=== PATIENT | male | born 1980 ===

== ENCOUNTER 2022-02-27 01:36 | Observation (INO) ==
[2022-02-27] MEDS ORDERED: GLUCAGON 1 MG VIAL IM PRN (02:15)
[2022-02-27] MEDS ORDERED: ONDANSETRON 4 MG/2 ML VIAL IV PRN (02:15)
[2022-02-27] MEDS ORDERED: ACETAMINOPHEN 325 MG TABLET PO PRN (02:15)
[2022-02-27] MEDS ORDERED: INFLUENZA VIRUS VACCINE 0.5 ML SYRINGE IM ONE (02:20)
[2022-02-27] MEDS ORDERED: hydrALAZINE 20 MG/1 ML VIAL IV PRN (02:23)
[2022-02-27] MEDS ORDERED: DEXTROSE 10% 250 ML BAG IV PRN (02:28)
[2022-02-27 03:51] LABS: Protein/Creatinine Ratio,Urine 5.3 RATIO
[2022-02-27] MEDS: INSULIN REGULAR 100 UNIT/ML SUBCUT SCH ×4 (07:30→20:18)
[2022-02-27 07:41] LABS: Basophils % 0.4 % (0.0-0.8); Eosinophils # 0.3 10*3/uL (0.0-0.87); Eosinophils % 3.6 % (0.00-10.9); Hematocrit 21.8 VOL% (42.0-52.0); Hemoglobin 7.1 GM/DL (14.0-18.0); Immature Granulocytes % 0.6 %; Immature Granulocytes Absolute 0.04 #; Lymphocytes # 1.4 10*3/uL (1.4-4.0); Lymphocytes % 20.5 % (21.2-54.2); Mean Corpuscular HGB Conc 32.6 GM/DL (32-36); Mean Corpuscular Volume 91.6 FL (87-102); Mean Platelet Volume 9.3 FL (9.6-12.0); Monocytes # 0.6 10*3/uL (0.11-0.8); Monocytes % 8.7 % (1.7-12.7); Neutrophils % 66.2 % (38.7-73.9); Platelet Count 185 T/CUMM (130-400); Red Blood Count 2.38 MC/CUMM (3.8-5.5); Red Cell Distribution Width 13.7 % (9.3-17.3); White Blood Count 6.9 T/CUMM (4-12)
[2022-02-27 08:01] LABS: Alanine Aminotransferase 13 U/L (16-61); Albumin 1.8 G/DL (3.4-5.0); Alkaline Phosphatase 86 U/L (45-117); Aspartate Amino Transferase 15 U/L (0-37); Bilirubin,Total < 0.39 MG/DL (0.20-1.00); Blood Urea Nitrogen 43 MG/DL (7-18); Calcium 7.4 MG/DL (8.5-10.1); Carbon Dioxide 27 MMOL/L (21-32); Chloride 118 MMOL/L (98-107); Glucose 108 MG/DL (74-106); Osmolality,Calculated 303.4 MOS/KG (273-304); Potassium 4.1 MMOL/L (3.5-5.1); Sodium 147 MMOL/L (136-145)
[2022-02-27] MEDS: ENOXAPARIN 30 MG/0.3 ML SYRINGE SUBCUT SCH (09:23)
[2022-02-27] MEDS: SPIRONOLACTONE 25 MG TABLET PO SCH (09:24)
[2022-02-27] MEDS: carvediloL 3.125 MG TABLET PO SCH ×2 (09:24→20:13)
[2022-02-27] MEDS: PANTOPRAZOLE 40 MG TABLET PO SCH (09:24)
[2022-02-27 10:45] LABS: Risk Ratio 4.97
[2022-02-27] MEDS ORDERED: SODIUM CHLORIDE 0.9% 1,000 ML IV PRN (14:50)
[2022-02-27 17:59] LABS: Amorphous Crystals,Urine Occasional /HPF (Few); Bacteria,Urine Occasional /HPF (Few); Bilirubin,Urine Negative (Negative); Blood, Urine Small mg/dL (Negative); Glucose,Urine (UA) >=500 mg/dL (Negative); Hyaline Casts,Urine 4 /LPF (0-3); Ketones,Urine Negative (Negative); Mucus,Urine Occasional /LPF (Occasional); Nitrite,Urine Negative (Negative); Protein,Urine >=500 mg/dL (Negative); RBC,Urine 4 /HPF (0-4); Squamous Epithelial Cell,Urine Occasional /HPF (0-10); Urine Appearance Slightly Hazy (Clear); Urine Color Yellow (Yellow); Urine Specific Gravity 1.017 (1.001-1.035); Urine Urobilinogen < 2.0 eU/dL (<2.0)
[2022-02-27 22:20] LABS: Hematocrit 24.4 VOL% (42.0-52.0)
[2022-02-28 05:41] LABS: Calcium 7.5 MG/DL (8.5-10.1); Osmolality,Calculated 300.8 MOS/KG (273-304); Potassium 4.2 MMOL/L (3.5-5.1)
[2022-02-28] MEDS: INSULIN REGULAR 100 UNIT/ML SUBCUT SCH ×4 (08:26→20:41)
[2022-02-28] MEDS: SPIRONOLACTONE 25 MG TABLET PO SCH (09:03)
[2022-02-28] MEDS: PANTOPRAZOLE 40 MG TABLET PO SCH (09:04)
[2022-02-28] MEDS: carvediloL 3.125 MG TABLET PO SCH (09:04)
[2022-02-28] MEDS: ENOXAPARIN 30 MG/0.3 ML SYRINGE SUBCUT SCH (09:04)
[2022-02-28] MEDS: FUROSEMIDE 20 MG TABLET PO SCH (17:40)
[2022-02-28 19:00] LABS: Hepatitis B Core IgM Quant 0.19 Index; Hepatitis B Surface Ag Quant < 0.10 Index; Hepatitis B Surface Ag Result Non-Reactive (NonReactive); Hepatitis C Virus Ab Quant 0.06 Index; Hepatitis C Virus Ab Result Non-Reactive (NonReactive)
[2022-02-28] MEDS: hydrALAZINE 25 MG TABLET PO SCH (20:41)
[2022-02-28] MEDS: carvediloL 6.25 MG TABLET PO SCH (20:41)
[2022-03-01 06:01] LABS: Calcium 7.3 MG/DL (8.5-10.1); Osmolality,Calculated 302.6 MOS/KG (273-304); Potassium 4.2 MMOL/L (3.5-5.1)
[2022-03-01] MEDS: INSULIN REGULAR 100 UNIT/ML SUBCUT SCH ×3 (07:54→15:43)
[2022-03-01] MEDS ORDERED: metOLazone 5 MG TABLET PO SCH (09:00)
[2022-03-01] MEDS: FUROSEMIDE 20 MG TABLET PO SCH ×2 (09:42→16:00)
[2022-03-01] MEDS: carvediloL 6.25 MG TABLET PO SCH (09:42)
[2022-03-01] MEDS: SPIRONOLACTONE 25 MG TABLET PO SCH (09:42)
[2022-03-01] MEDS: PANTOPRAZOLE 40 MG TABLET PO SCH (09:43)
[2022-03-01] MEDS: ENOXAPARIN 30 MG/0.3 ML SYRINGE SUBCUT SCH (09:44)
[2022-03-01] MEDS: hydrALAZINE 25 MG TABLET PO SCH (09:50)
[2022-03-01 15:46] VITALS: BP 180/90
[2022-03-01 18:32] LABS: Total Protein 24 Hr Ur Result 7154 MG/24HR (0-149.1); Total Volume,Urine 2450 ML (400-2000)
== END 2022-03-01 16:35 | disposition home or self-care (01) ==
LOC: SUATTDRO 01:36 → N.TELEN 01:36 → INTOOBSV 01:36
PROVIDERS: ADMIT Internal Medicine; ATTEND Internal Medicine